=== PATIENT | male | born 1945 | race Two or more races ===

== ENCOUNTER 2020-06-29 20:10 | Inpatient (IN) | payer MEDICARE, OTHER ==
[~2020-06-29] VITALS: Ht 165.1 cm; Wt 75.3 kg
--- NOTE | 2020-06-29 20:25 | NUR ---
PT BIB[place] AND PD FROM [place]. PER REPORT "STAFF WERE CONCERNED BECAUSE HE NEVER LEFT." TREMORS NOTED. PT STATES "DOLOR" BUT UNABLE TO POINT WHERE THE PAIN IS. PT UNABLE TO PROVIDE HISTORY. PT AAOX2, RESPIRATIONS EVEN AND UNLABORED ON RA W/ NAD NOTED. PT CONNECTED TO THE POUNCING MACHINE OPERATOR AND POX.
--- NOTE | 2020-06-29 20:40 | NUR ---
BLOOD COLLECTED AND SENT TO LAB
[2020-06-29 20:49] LABS: BASOPHILS # (AUTO) 0.1 /CMM (0.0-0.2); BASOPHILS % (AUTO) 0.4 % (0.0-2.0); EOSINOPHILS % (AUTO) 0.1 % (0.0-6.0); HEMATOCRIT 45 % (39-51); HEMOGLOBIN 15.1 g/dL (13.5-17.5); LYMPHOCYTES # (AUTO) 1.3 /CMM (0.8-4.8); LYMPHOCYTES % (AUTO) 8.9 % (20.0-44.0); MEAN CORPUSCULAR HGB CONC 33 g/dl (31.0-36.0); MEAN CORPUSCULAR VOLUME 97 fL (80-96); MONOCYTES # (AUTO) 1.3 /CMM (0.1-1.30); MONOCYTES % (AUTO) 8.9 % (2.0-12.0); NEUTROPHILS # (AUTO) 11.7 /CMM (1.8-8.9); NEUTROPHILS % (AUTO) 81.7 % (43.0-81.0); PLATELET COUNT (AUTO) 170 /CMM (150-450); RED BLOOD CELL COUNT(AUTO) 4.69 MIL/uL (4.5-6.0); WHITE BLOOD COUNT (AUTO) 14.3 K/uL (4.3-11.0)
[2020-06-29 20:58] LABS: CALCIUM, SERUM 8.9 mg/dL (8.5-10.1); CREATININE 0.9 mg/dL (0.6-1.3); POTASSIUM 3.3 mmol/L (3.5-5.1)
--- NOTE | 2020-06-29 20:59 | NUR ---
PT TAKEN TO RADIOLOGY FOR CT
[2020-06-29 21:03] LABS: SERUM AMMONIA 17 umol/L (11-32)
[2020-06-29 21:04] LABS: ALANINE AMINOTRANSFERASE 11 U/L (12-78); ALCOHOL, BLOOD < 3 mg/dL (0-0); ALKALINE PHOSPHATASE 106 U/L (46-116); ASPARTATE AMINOTRANSFERASE 41 U/L (15-37); BILIRUBIN,DIRECT 0.2 mg/dL (0.0-0.2); BILIRUBIN,TOTAL 0.9 mg/dL (0.2-1.0); TOTAL PROTEIN, SERUM 7.7 g/dL (6.4-8.2)
--- NOTE | 2020-06-29 21:04 | NUR ---
pt returned from radiology
[2020-06-29] MEDS ORDERED: ONDANSETRON HCL/PF 4 MG/2 ML VIAL ONE (21:26)
[2020-06-29] MEDS ORDERED: MORPHINE SULFATE INJ 4 MG/ML DISP.SYRIN ONE (21:26)
[2020-06-29] MEDS ORDERED: MORPHINE SULFATE INJ 2 MG/ML DISP.SYRIN IV ONE (21:30)
[2020-06-29] MEDS ORDERED: IV NS 0.9% 1,000 ML BAG IV ONE (21:30)
[2020-06-29] MEDS ORDERED: ONDANSETRON HCL/PF 4 MG/2 ML VIAL IVP ONE (21:30)
[2020-06-29] MEDS ORDERED: PIPERACILLIN /TAZOBACTAM 3.375 G in IV D5W 50 ML IV ONE (21:30)
[2020-06-29 21:40] LABS: THYROID STIMULATING HORMONE 1.069 uIU/mL (0.358-3.74)
--- NOTE | 2020-06-29 21:40 | NUR ---
CALLED [facility], PAGED LUIS ENRIQUE
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
--- NOTE | 2020-06-29 21:47 | NUR ---
RECRUITING ADMINISTRATOR AT BEDSIDE FOR BLOOD DRAW
[2020-06-29] MEDS ORDERED: PIPERACILLIN /TAZOBACTAM 3.375 G VIAL IV ONE (21:53)
--- NOTE | 2020-06-29 21:53 | NUR ---
COVID SWAB SENT TO LAB
--- NOTE | 2020-06-29 21:57 | NUR ---
DALY BATTERY CHARGER CONVEYOR LINE AT BEDSIDE FOR EVAL
--- NOTE | 2020-06-29 22:28 | NUR ---
LAB CALLED, COVID RESULTS ARE NEGATIVE.
[2020-06-29] MEDS ORDERED: MAGNESIUM HYDROXIDE 30 ML UDC PO PRN (22:30)
[2020-06-29] MEDS ORDERED: CIPROFLOXACIN IV RTU 400 MG in PREMIX 1 EA IV SCH (22:30)
[2020-06-29] MEDS ORDERED: POTASSIUM CHLORIDE 20 MEQ TAB.PRT.SR PO ONE (22:30)
[2020-06-29] MEDS ORDERED: ACETAMINOPHEN 325 MG TABLET PO PRN (22:30)
[2020-06-29] MEDS ORDERED: MAG HYDROX/AL HYDROX/SIMETH 30 ML UDC PO PRN (22:30)
[2020-06-29] MEDS ORDERED: ONDANSETRON HCL/PF 4 MG/2 ML VIAL IVP PRN (22:30)
--- NOTE | 2020-06-29 22:41 | NUR ---
pt assigned [id number].
--- NOTE | 2020-06-29 22:49 | NUR ---
REPORT GIVEN TO URBANO CASIANO FOR JOSHUA
--- NOTE | 2020-06-29 23:43 | NUR ---
PT TRANSFERRED TO ROOM IN STABLE CONDITION
[2020-06-29 23:45] VITALS: BP 135/83
--- NOTE | 2020-06-29 23:45 | NUR ---
MS/REINFORCEMENT MAKER NOTE Patient in brought in by marquita @ 0204 from ER. VS: BP135/83 P78 R18 T98.3 [id number]%. Weight: 166 lbs. Patient is A/O x1-2, on bedrest. Patient unable to give any meaningful history or information during admission. Liberian speaking only. Patient unable to tell me date/time or where he is. Breath sounds even, clear, unlabored on room air. No JVD. CRP <3seconds. No tracheal deviation. Abdomen rond, soft, non-distended. BS hypoactive all quadrants. Patient is incontinent. ER nurse mentioned prior to leaving the ER, patient was able to ambulate to the bathroom independently. Tremors noted. Skin warm, pink, dry, intact. Full ROM achieved in all extremities. Coding Advisor strength 2+. Unable to assess gait, patient did not ambulate in room. Bed in low position, wheels locked, side rails up x2, call light within reach. Patient oriented to room.
[2020-06-30] MEDS: ASPIRIN 325 MG TABLET PO SCH ×2 (00:18→09:59)
[2020-06-30] MEDS: ENOXAPARIN SODIUM 40 MG/0.4 ML DISP.SYRIN SQ SCH ×2 (00:20→21:34)
[2020-06-30] MEDS ORDERED: METRONIDAZOLE 500MG/ NS 100ML 100 ML IV ONE (00:53)
[2020-06-30] MEDS ORDERED: CIPROFLOXACIN IV RTU 200 ML IV ONE (01:14)
[2020-06-30 02:02] VITALS: BP 135/83
[2020-06-30] MEDS: IV 1/2NS 1000 ML 1,000 ML IV PRN (03:45)
--- NOTE | 2020-06-30 03:57 | NUR ---
CALLED [facility] [phone] FOR [place]IN[place] MISSING PERSONS REPORT CASE [id number]. STATION CLOSED AT THIS TIME.
[2020-06-30] MEDS: METRONIDAZOLE 500MG/ NS 100ML 500 MG in PREMIX 1 EA IV SCH ×3 (04:00→21:37)
--- NOTE | 2020-06-30 06:06 | NUR ---
MS/RN CLOSING NOTE Patient is A/O x1-2, on bedrest. Polish speaking only. Breath sounds even, clear, unlabored on room air. No JVD. CRP <3seconds. Abdomen round, soft, non-distended. Patient had diarrhea 2x in ER. Patient is continent. Void 2x. Urinal 300 ml. Tremors noted. Skin warm, pink, dry, intact. Bed in low position, wheels locked, side rails up x2, call light within reach. Patient oriented to room.
[2020-06-30 06:14] LABS: BASOPHILS % (AUTO) 0.5 % (0.0-2.0); EOSINOPHILS % (AUTO) 0.9 % (0.0-6.0); HEMATOCRIT 43 % (39-51); HEMOGLOBIN 14.5 g/dL (13.5-17.5); LYMPHOCYTES # (AUTO) 2.4 /CMM (0.8-4.8); LYMPHOCYTES % (AUTO) 24.2 % (20.0-44.0); MEAN CORPUSCULAR HGB CONC 34 g/dl (31.0-36.0); MEAN CORPUSCULAR VOLUME 96 fL (80-96); MONOCYTES # (AUTO) 1.1 /CMM (0.1-1.30); NEUTROPHILS # (AUTO) 6.2 /CMM (1.8-8.9); NEUTROPHILS % (AUTO) 63.4 % (43.0-81.0); PLATELET COUNT (AUTO) 158 /CMM (150-450); RED BLOOD CELL COUNT(AUTO) 4.53 MIL/uL (4.5-6.0); WHITE BLOOD COUNT (AUTO) 9.8 K/uL (4.3-11.0)
[2020-06-30] MEDS: PANTOPRAZOLE 40 MG TABLET.DR PO SCH (06:36)
[2020-06-30 06:40] LABS: ALBUMIN 3.5 g/dL (3.4-5.0); BILIRUBIN,TOTAL 1.1 mg/dL (0.2-1.0); CALCIUM, SERUM 8.2 mg/dL (8.5-10.1); PHOSPHORUS 2.8 mg/dL (2.5-4.9); POTASSIUM 3.8 mmol/L (3.5-5.1); TOTAL PROTEIN, SERUM 6.8 g/dL (6.4-8.2)
[2020-06-30 06:45] LABS: THYROID STIMULATING HORMONE 1.103 uIU/mL (0.358-3.74)
[2020-06-30 08:00] VITALS: BP 141/81
--- NOTE | 2020-06-30 08:00 | NUR ---
Received patient from AM nurse. Patient in bed sleeping comfortably. Patient on room air and is breathing well, unlabored and equal. No SOB or acute respiratory distress noted. IV access noted on right forearm, 18 gauge, patent, no redness, or infiltration. Safety precaution in place, bed is in the lowest level, wheels are locked, alarm is on, side rails x2 are up, and call light is within reach. Will continue to monitor.
--- NOTE | 2020-06-30 09:00 | NUR ---
POLICE HERE THIS AM MISSING PERSONS REPORT FILED ON PT. POLICE STATE THEY SPOKE WITH FAMILY THIS AM.
[2020-06-30] MEDS ORDERED: TAMS-12 PO (10:15)
[2020-06-30] MEDS ORDERED: DONE10TA44 PO (10:15)
[2020-06-30] MEDS ORDERED: DUTA0.5C16 PO (10:15)
[2020-06-30] MEDS ORDERED: CARB1TAB39 PO (10:15)
[2020-06-30] MEDS ORDERED: ATEN50TA PO (10:15)
[2020-06-30] MEDS: HYDROCODONE/APAP 5/325MG TABLET PO PRN ×2 (12:14→18:35)
--- NOTE | 2020-06-30 12:15 | NUR ---
MED WITH VALDOSTA FOR SOLO. LEG PAIN.SPEAKS LITTLE BANGLADESHI.Dilan KRAMER FUNERAL GREETER INFORMED OF LEG PAIN.DTR.CALLING IN TO CHECK ON PT.
[2020-06-30] MEDS: CIPROFLOXACIN IV RTU 400 MG in PREMIX 1 EA IV SCH (12:19)
--- NOTE | 2020-06-30 12:20 | NUR ---
informed pt. asking for more food than cl. liquids.
--- NOTE | 2020-06-30 12:35 | NUR ---
Tatiana KRAMER MASTER COASTAL WATERS AWARE PT. WITH SHAKES,AND HAS HX OF PARKINSONS.
[2020-06-30 16:00] VITALS: BP 115/80
--- NOTE | 2020-06-30 17:45 | NUR ---
sleeping all afternoon.
--- NOTE | 2020-06-30 18:35 | NUR ---
medicated for fabián. leg pain with norco.
[2020-06-30 20:00] VITALS: BP 143/83
[2020-07-01] MEDS: CIPROFLOXACIN IV RTU 400 MG in PREMIX 1 EA IV SCH ×3 (00:34→23:33)
[2020-07-01] MEDS: IV 1/2NS 1000 ML 1,000 ML IV PRN (05:08)
[2020-07-01] MEDS: METRONIDAZOLE 500MG/ NS 100ML 500 MG in PREMIX 1 EA IV SCH ×3 (05:09→21:31)
--- NOTE | 2020-07-01 05:45 | NUR ---
Patient complains of bilateral lower extremity pain. Patient rates 7 on a 0-10 numerical scale. Noted BLE edema and weakness. Made Epic aware. MD ordered bilateral lower extremity venous duplex. Read order back and carried out.
[2020-07-01 06:33] LABS: BASOPHILS % (AUTO) 0.5 % (0.0-2.0); EOSINOPHILS % (AUTO) 4.1 % (0.0-6.0); HEMATOCRIT 44 % (39-51); HEMOGLOBIN 14.8 g/dL (13.5-17.5); LYMPHOCYTES # (AUTO) 2.1 /CMM (0.8-4.8); LYMPHOCYTES % (AUTO) 29.4 % (20.0-44.0); MEAN CORPUSCULAR HGB CONC 34 g/dl (31.0-36.0); MEAN CORPUSCULAR VOLUME 96 fL (80-96); MONOCYTES # (AUTO) 0.8 /CMM (0.1-1.30); MONOCYTES % (AUTO) 10.5 % (2.0-12.0); NEUTROPHILS % (AUTO) 55.5 % (43.0-81.0); PLATELET COUNT (AUTO) 164 /CMM (150-450); RED BLOOD CELL COUNT(AUTO) 4.61 MIL/uL (4.5-6.0); WHITE BLOOD COUNT (AUTO) 7.2 K/uL (4.3-11.0)
[2020-07-01 07:10] LABS: CALCIUM, SERUM 8.5 mg/dL (8.5-10.1); CREATININE 0.8 mg/dL (0.6-1.3); MAGNESIUM 1.9 mg/dL (1.8-2.4); PHOSPHORUS 3.4 mg/dL (2.5-4.9); POTASSIUM 3.5 mmol/L (3.5-5.1)
--- NOTE | 2020-07-01 07:35 | NUR ---
RN MS OPENING NOTES RECEIVED PATIENT RESTING IN BED A/O X1-2, PATIENT ON RA; WITH EVEN AND UNLABORED BREATHING, NO ACUTE RESPIRATORY DISTRESS NOTED. IV TO RT FA #18 G PATENT AND INTACT RUNNING WITH 0.45& NS @50 ML/HR. NO REDNESS OR SWELLING NOTED, NO SIGNS OF INFILTRATION. SKIN INTACT, BED IS AT LOWEST POSITION AND LOCKED WITH SIDE RAILS UPX2 AND CALL LIGHT WITHIN REACH. WILL CONTINUE TO MONITOR PATIENT THROUGH OUT SHIFT.
[2020-07-01] MEDS: PANTOPRAZOLE 40 MG TABLET.DR PO SCH (07:38)
[2020-07-01 08:00] VITALS: BP 126/78
[2020-07-01] MEDS: ASPIRIN 325 MG TABLET PO SCH (08:44)
[2020-07-01 16:00] VITALS: BP 180/66
--- NOTE | 2020-07-01 18:12 | NUR ---
RN MS CLOSING NOTES PATIENT RESTING COMFORTABLY IN BED A/O X1-2, PATIENT IS ON RA; WITH EVEN AND UNLABORED BREATHING, NO ACUTE RESPIRATORY DISTRESS NOTED. IV TO RT FA #18 G PATENT AND INTACT RUNNING WITH 0.45& NS @50 ML/HR. NO REDNESS OR SWELLING NOTED. SKIN INTACT, BED IS AT LOWEST POSITION AND LOCKED WITH SIDE RAILS UPX2 AND CALL LIGHT WITHIN REACH. WILL ENDORSE TO ONCOMING SHIFT
--- NOTE | 2020-07-01 19:47 | NUR ---
Received patient from AM nurse. Patient in bed, awake, alert, and oriented x2. Patient on room air and is breathing well, unlabored and equal. No SOB or acute respiratory distress noted. IV access noted on right forearm, 18 gauge, patent, no redness, or infiltration. Safety precaution in place, bed is in the lowest level, wheels are locked, alarm is on, side rails x2 are up, and call light is within reach. Will continue to monitor.
[2020-07-01 20:00] VITALS: BP 145/90
[2020-07-01 20:42] VITALS: BP 145/90
[2020-07-01] MEDS: ENOXAPARIN SODIUM 40 MG/0.4 ML DISP.SYRIN SQ SCH (21:30)
--- NOTE | 2020-07-01 22:00 | NUR ---
Gave report to Kimber for continuity of care.
--- NOTE | 2020-07-01 22:12 | NUR ---
RN NOTES RECEIVED PATIENT FROM URBANO DURON. RESTING IN BED A/O X 1-2. STABLE ON RA WITH BREATHING EVEN AND UNLBORED, NO SOB NOTED. NO SIGNS OF ACUTE DISTRESS. SAFETY PRECAUTIONS IN PLACE . WILL CONTINUE TO MONITOR THROUGHOUT THE NIGHT,
[2020-07-02] MEDS: METRONIDAZOLE 500MG/ NS 100ML 500 MG in PREMIX 1 EA IV SCH (04:30)
[2020-07-02 07:05] LABS: BASOPHILS % (AUTO) 0.7 % (0.0-2.0); EOSINOPHILS % (AUTO) 2.6 % (0.0-6.0); HEMATOCRIT 45 % (39-51); HEMOGLOBIN 15.3 g/dL (13.5-17.5); LYMPHOCYTES # (AUTO) 1.7 /CMM (0.8-4.8); LYMPHOCYTES % (AUTO) 23.5 % (20.0-44.0); MEAN CORPUSCULAR HGB CONC 34 g/dl (31.0-36.0); MEAN CORPUSCULAR VOLUME 95 fL (80-96); MONOCYTES # (AUTO) 0.8 /CMM (0.1-1.30); MONOCYTES % (AUTO) 11.4 % (2.0-12.0); NEUTROPHILS # (AUTO) 4.4 /CMM (1.8-8.9); NEUTROPHILS % (AUTO) 61.8 % (43.0-81.0); PLATELET COUNT (AUTO) 157 /CMM (150-450); RED BLOOD CELL COUNT(AUTO) 4.76 MIL/uL (4.5-6.0)
[2020-07-02 07:09] LABS: CALCIUM, SERUM 8.3 mg/dL (8.5-10.1); CREATININE 0.9 mg/dL (0.6-1.3); POTASSIUM 3.6 mmol/L (3.5-5.1)
--- NOTE | 2020-07-02 07:55 | NUR ---
MS/RN OPENING NOTE RECEIVED PATIENT FROM CERTIFIED RECREATIONAL THERAPIST. PATIENT REMAINS IN STABLE CONDITION. A/O X1-2 SAMI SPEAKING. VS WITHIN NORMAL RANGE, NO ACUTE DISTRESS NOTED. PATIENT IS ON ROOM AIR TOLERATING WELL. RIGHT FA #18 INTACT AND PATENT, INFUSING 1/2 NS AT 50ML/HR. SAFETY MEASURES IN PLACE, BED LOCKED AND IN LOWEST POSITION, CALL LIGHT WITH IN REACH, BED ALARM ACTIVATED. WILL CONTINUE TO MONITOR AND ENSURE SAFETY.
[2020-07-02 08:00] VITALS: BP 148/69
[2020-07-02] MEDS: PANTOPRAZOLE 40 MG TABLET.DR PO SCH (08:23)
[2020-07-02] MEDS: ASPIRIN 325 MG TABLET PO SCH (08:23)
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
--- NOTE | 2020-07-02 12:37 | NUR ---
SANDRA contacted patient daughter Brenda . Daughter Brenda informed this SW that the patient has had previous episodes of forgetfulness. Brenda informed this SW that the patient was home alone on 06/29. Brenda informed this SW that the patient has a history of Parkinsons disease and Brenda reports that the patient has not been diagnosed with Dementia but Brenda suspects that the patient has dementia. Brenda stated that the patient has a private caregiver for 6 hours a day and the patients family visit his home often. Brenda reported that a recent episode of forgetfulness included the patient confusing Brenda with patients granddaughter. Brenda asked this SW about patients discharge. SANDRA informed Brenda that there is no current date for discharge as patients physician has not made any recommendations yet. Brenda asked this SW if the patient may need 24-hour care. SW informed Brenda that patients physician would make his recommendation and Brenda can explore prison facility, acute rehab, home health, and in-home support services with Case Management team. Brenda informed this SW that she would wait for patient physician recommendation regarding discharge status. Plan: SANDRA to inform Case Management team to follow-up with Brenda pending discharge recommendation.
[2020-07-02] MEDS: METRONIDAZOLE 500 MG TABLET PO SCH ×2 (12:39→20:33)
[2020-07-02] MEDS: CIPROFLOXACIN HCL 500 MG TABLET PO SCH ×2 (12:43→20:33)
[2020-07-02] MEDS: IV 1/2NS 1000 ML 1,000 ML IV PRN (12:50)
[2020-07-02 16:00] VITALS: BP 147/84
[2020-07-02] MEDS: CARBIDOPA/LEVODOPA 25/100 MG 1 UDTAB PO SCH (16:44)
--- NOTE | 2020-07-02 19:30 | NUR ---
Opening Notes: Report received from am nurse. Patient is ambulatory with assistance. [place] speaking. No acute distress noted. Denies any pain, no SOB noted. VS WNL. Patient assisted with ADLs and transfers. Patient able to reposition and turn herself. Fall precautions observed. Call light within reach.
[2020-07-02] MEDS: ENOXAPARIN SODIUM 40 MG/0.4 ML DISP.SYRIN SQ SCH (23:07)
[2020-07-03] MEDS: METRONIDAZOLE 500 MG TABLET PO SCH ×2 (05:30→12:26)
--- NOTE | 2020-07-03 06:49 | NUR ---
Closing Notes: Patient awake. No acute distress noted. Denies any pain, no SOB noted. VS WNL. Patient assisted with ADLs and transfers. Kept clean and dry. Good pericare provided. Linens changed. Patient able to reposition and turn himself. Fall precautions observed. Call light within reach.
[2020-07-03 07:23] LABS: BASOPHILS % (AUTO) 0.6 % (0.0-2.0); EOSINOPHILS % (AUTO) 2.1 % (0.0-6.0); HEMATOCRIT 48 % (39-51); HEMOGLOBIN 16.1 g/dL (13.5-17.5); LYMPHOCYTES # (AUTO) 1.7 /CMM (0.8-4.8); LYMPHOCYTES % (AUTO) 20.5 % (20.0-44.0); MEAN CORPUSCULAR HGB CONC 34 g/dl (31.0-36.0); MEAN CORPUSCULAR VOLUME 96 fL (80-96); MONOCYTES # (AUTO) 1.1 /CMM (0.1-1.30); MONOCYTES % (AUTO) 12.6 % (2.0-12.0); NEUTROPHILS # (AUTO) 5.4 /CMM (1.8-8.9); NEUTROPHILS % (AUTO) 64.2 % (43.0-81.0); PLATELET COUNT (AUTO) 160 /CMM (150-450); RED BLOOD CELL COUNT(AUTO) 5.02 MIL/uL (4.5-6.0); WHITE BLOOD COUNT (AUTO) 8.4 K/uL (4.3-11.0)
--- NOTE | 2020-07-03 07:30 | NUR ---
MS/RN OPENING NOTE Received patient resting in bed, A&O x 1-2, Maltese speaking. Denies any pain/discomfort at this time. Breathing even and non-labored on RA. No respiratory or cardiac distress noted. IV access noted on R FA #18 gauge, patent and intact, and running 1/2 NS @ 50ml/hr. Sensation from all peripheral extremities intact. Bed locked to its lowest position, side rails x 2 up, call light in hand. Will continue with current medical management.
[2020-07-03 08:00] LABS: CALCIUM, SERUM 8.5 mg/dL (8.5-10.1); POTASSIUM 3.2 mmol/L (3.5-5.1)
[2020-07-03] MEDS: CARBIDOPA/LEVODOPA 25/100 MG 1 UDTAB PO SCH ×2 (08:16→12:26)
[2020-07-03] MEDS: ASPIRIN 325 MG TABLET PO SCH (08:16)
[2020-07-03] MEDS: CIPROFLOXACIN HCL 500 MG TABLET PO SCH (08:16)
[2020-07-03] MEDS: PANTOPRAZOLE 40 MG TABLET.DR PO SCH (08:16)
[2020-07-03] MEDS ORDERED: LISINOPRIL (10MG) 10 MG TABLET PO SCH (09:00)
[2020-07-03 09:04] VITALS: BP 151/82
[2020-07-03] MEDS ORDERED: POTASSIUM CHLORIDE 20 MEQ TAB.PRT.SR PO ONE (10:30)
[2020-07-03] MEDS ORDERED: CARBIDOPA/LEVA CR 25/100MG 1 TAB.SA PO SCH (13:00)
--- NOTE | 2020-07-03 13:00 | NUR ---
MS/RN NOTE Advanced diet to soft diet, patient tolerating it well. Will continue to monitor.
--- NOTE | 2020-07-03 14:00 | NUR ---
MS/CARPET TILE LAYER NOTES Patient picked up at 1400 by billing specialist. All needs are met and attended to. Patient remained stable throughout shift. A&O X 1-2, VSS, afebrile, no SOB noted. Denies any pain/discomfort at this time. Breathing even and non-labored on RA, no respiratory distress noted. No cardiac distress noted. IV access on R FA #18 removed with catheter intact, placed clean dry dressing on site. No s/s of infection, bleeding, or infiltration noted on site. Skin assessment done, no new skin impairments noted. Sensation from all peripheral extremities intact. Educated patient and [facility] regarding [facility] instructions, answered all their questions to their satisfaction. Both have verbalized understanding. Patient left facility safely with all belongings and hospital documents in hand.
[2020-07-03] MEDS ORDERED: TAMSULOSIN 0.4 MG CAP.SR.24H PO SCH (22:00)
[2020-07-04] MEDS ORDERED: ATENOLOL 50 MG TABLET PO SCH (09:00)
[2020-07-04] MEDS ORDERED: DONEPEZIL 5 MG TABLET PO SCH (09:00)
[2020-07-04] MEDS ORDERED: DUTASTERIDE (0.5 MG) 0.5 MG CAPSULE PO SCH (09:00)
== END 2020-07-03 14:15 | DRG 391 ==
LOC: ER 20:13 → MED 22:51
PROVIDERS: ADMIT Nurse Practitioner Acute Care; ATTEND Internal Medicine
DX: A09 Infectious gastroenteritis and colitis, unspecified (principal); G93.41 Metabolic encephalopathy; I21.A1 Myocardial infarction type 2; D68.69 Other thrombophilia; G20 Parkinson's disease; F02.80 Dementia in other diseases classified elsewhere, unspecified severity, without behavioral disturbance, psychotic disturbance, mood disturbance, and anxiety; E87.6 Hypokalemia; I10 Essential (primary) hypertension; D72.829 Elevated white blood cell count, unspecified; R40.2362 Coma scale, best motor response, obeys commands, at arrival to emergency department; R40.2142 Coma scale, eyes open, spontaneous, at arrival to emergency department; R40.2252 Coma scale, best verbal response, oriented, at arrival to emergency department
CPT/HCPCS: 36415; 70450-TC; 71045-TC; 80048-TC; 80053-TC; 80061-TC; 80076-TC; 82140-TC; 83735-TC; 84100-TC; 84443-TC; 84484-TC; 85025-TC; 85730-TC; 87040-TC; 87081-TC; 93307-TC; 93970-TC; 97112-TC; 97116-TC; 97530-TC; A4216; C9803; G0378; G0480; J0744; J1650; J2270; J2405; J2543; J3490; J7030; J7060

== ENCOUNTER 2024-01-28 20:19 | Inpatient (IN) | payer MEDICARE, OTHER ==
[~2024-01-28] VITALS: Ht 162.6 cm; Wt 57.2 kg
[~2024-01-28 20:19] MED LIST: ATEN50TA PO; CARB1TAB39 PO; DONE10TA44 PO; DUTA0.5C37 PO; TAMS-12 PO
[2024-01-28] MEDS ORDERED: CEFEPIME 1 GM VIAL ONE (20:40)
[2024-01-28 20:49] LABS: BASOPHILS % (AUTO) 0.4 % (0.0-2.0); EOSINOPHILS # (AUTO) 0.1 K/uL (0.0-0.7); EOSINOPHILS % (AUTO) 1.1 % (0.0-6.0); HEMATOCRIT 43 % (39-51); HEMOGLOBIN 14.5 g/dL (13.5-17.5); LYMPHOCYTES # (AUTO) 1.7 K/uL (0.8-4.8); LYMPHOCYTES % (AUTO) 19.7 % (20.0-44.0); MEAN CORPUSCULAR HEMOGLOBIN 32 PG (26.0-33.0); MEAN CORPUSCULAR HGB CONC 34 g/dl (31.0-36.0); MEAN CORPUSCULAR VOLUME 95 fL (80-96); MONOCYTES % (AUTO) 11.6 % (2.0-12.0); NEUTROPHILS # (AUTO) 5.7 K/uL (1.8-8.9); NEUTROPHILS % (AUTO) 67.2 % (43.0-81.0); PLATELET COUNT (AUTO) 137 K/uL (150-450); RED BLOOD CELL COUNT(AUTO) 4.56 MIL/uL (4.5-6.0); RED CELL DISTRIBUTION WIDTH 13.8 % (11.5-15.0); WHITE BLOOD COUNT (AUTO) 8.4 K/uL (4.3-11.0)
[2024-01-28] MEDS: CEFEPIME 1 GM in IV D5W 50 ML IV ONE (20:54)
[2024-01-28] MEDS: IV NS 0.9% 1,000 ML BAG IV ONE (20:54)
[2024-01-28 21:02] LABS: CALCIUM, SERUM 8.3 mg/dL (8.5-10.1); CARBON DIOXIDE 24 mmol/L (21-32); CHLORIDE 108 mmol/L (98-107); CREATININE 0.8 mg/dL (0.6-1.3); GLUCOSE 87 mg/dL (74-106); POTASSIUM 3.2 mmol/L (3.5-5.1); SODIUM SERUM 139 mmol/L (136-145); UREA NITROGEN, BLOOD 23 mg/dL (7-18)
[2024-01-28 21:05] LABS: INR 1.18 (0.91-1.10); PARTIAL THROMBOPLASTIN TIME 29.1 SEC (24.3-34.3); PROTHROMBIN TIME 12.1 SECS (9.2-11.1)
[2024-01-28 21:10] LABS: LACTIC ACID 0.7 mmol/L (0.4-2.0)
[2024-01-28 21:16] LABS: ALANINE AMINOTRANSFERASE 25 U/L (12-78); ALBUMIN 3.5 g/dL (3.4-5.0); ALKALINE PHOSPHATASE 83 U/L (46-116); ASPARTATE AMINOTRANSFERASE 15 U/L (15-37); BILIRUBIN,DIRECT 0.2 mg/dL (0.0-0.2); BILIRUBIN,TOTAL 0.9 mg/dL (0.2-1.0)
[2024-01-28 22:30] VITALS: BP 134/73; TEMP 98.4; O2SAT 98
[2024-01-28] MEDS ORDERED: ONDANSETRON HCL/PF 4 MG/2 ML VIAL IVP PRN (23:00)
[2024-01-28] MEDS ORDERED: MAG HYDROX/AL HYDROX/SIMETH 30 ML UDC PO PRN (23:00)
[2024-01-28] MEDS ORDERED: Z GUARD REMEDY 4 OZ OINT TP PRN (23:00)
[2024-01-28] MEDS ORDERED: MAGNESIUM HYDROXIDE 30 ML UDC PO PRN (23:00)
[2024-01-28] MEDS ORDERED: ZOLPIDEM TARTRATE 5 MG TABLET PO PRN (23:00)
[2024-01-28] MEDS ORDERED: ACETAMINOPHEN 325 MG TABLET PO PRN (23:00)
[2024-01-29] MEDS ORDERED: IV PREMIX D5 1/2NS + KCL 1,000 ML IV ONE (00:31)
[2024-01-29 00:36] VITALS: BP 134/73; TEMP 98.6; O2SAT 98
[2024-01-29] MEDS: Potassium Chloride 20 MEQ in IV D5/0.45 NACL 1,000 ML IV PRN (00:40)
[2024-01-29] MEDS: METOPROLOL TARTRATE INJ 5 MG/5 ML AMPUL IVP ONE (00:45)
[2024-01-29 04:38] VITALS: BP 115/77; TEMP 98.4; O2SAT 98
[2024-01-29 07:00] VITALS: BP 113/69; TEMP 97.3; O2SAT 98
[2024-01-29 07:32] LABS: BASOPHILS % (AUTO) 0.2 % (0.0-2.0); EOSINOPHILS # (AUTO) 0.2 K/uL (0.0-0.7); HEMATOCRIT 38 % (39-51); HEMOGLOBIN 12.7 g/dL (13.5-17.5); LYMPHOCYTES # (AUTO) 1.9 K/uL (0.8-4.8); LYMPHOCYTES % (AUTO) 26.7 % (20.0-44.0); MEAN CORPUSCULAR HEMOGLOBIN 33 PG (26.0-33.0); MEAN CORPUSCULAR HGB CONC 34 g/dl (31.0-36.0); MEAN CORPUSCULAR VOLUME 96 fL (80-96); MONOCYTES % (AUTO) 14.1 % (2.0-12.0); NEUTROPHILS # (AUTO) 3.9 K/uL (1.8-8.9); PLATELET COUNT (AUTO) 123 K/uL (150-450); RED BLOOD CELL COUNT(AUTO) 3.92 MIL/uL (4.5-6.0); RED CELL DISTRIBUTION WIDTH 13.7 % (11.5-15.0); WHITE BLOOD COUNT (AUTO) 6.9 K/uL (4.3-11.0)
[2024-01-29 08:29] LABS: ALBUMIN 2.7 g/dL (3.4-5.0); BILIRUBIN,DIRECT 0.2 mg/dL (0.0-0.2); BILIRUBIN,TOTAL 0.7 mg/dL (0.2-1.0); CALCIUM, SERUM 7.7 mg/dL (8.5-10.1); CREATININE 0.8 mg/dL (0.6-1.3); MAGNESIUM 1.8 mg/dL (1.8-2.4); PHOSPHORUS 2.7 mg/dL (2.5-4.9); POTASSIUM 3.4 mmol/L (3.5-5.1); TOTAL PROTEIN, SERUM 5.8 g/dL (6.4-8.2)
[2024-01-29 08:34] LABS: THYROID STIMULATING HORMONE 0.921 uIU/mL (0.358-3.74)
[2024-01-29] MEDS: PANTOPRAZOLE 40 MG VIAL IV SCH (08:40)
[2024-01-29] MEDS: ENOXAPARIN SODIUM 40 MG/0.4 ML DISP.SYRIN SQ SCH (08:41)
[2024-01-29] MEDS: POTASSIUM CL. PREMIX PERIPHER. 50 ML IV SCH (09:23)
[2024-01-29] MEDS: IV D5/0.45 NACL W/20 MEQ KCL 1L IV SCH (13:50)
[2024-01-29 16:00] VITALS: BP 118/71; TEMP 98.4; O2SAT 95
[2024-01-29] MEDS: CEFTRIAXONE 1 G in IV D5W 50 ML IV SCH (18:46)
[2024-01-29] MEDS: VANCOMYCIN HCL 1.25 GM in IV D5W 250 ML IV ONE (19:48)
[2024-01-29 20:00] VITALS: BP 131/78; TEMP 95.5; TEMP 97.5; O2SAT 97
[2024-01-30] MEDS: VANCOMYCIN 750 MG in IV D5W 250 ML IV SCH (06:16)
[2024-01-30 06:51] LABS: CALCIUM, SERUM 7.6 mg/dL (8.5-10.1); CREATININE 0.7 mg/dL (0.6-1.3); POTASSIUM 3.3 mmol/L (3.5-5.1)
[2024-01-30 08:00] VITALS: BP 112/73; TEMP 98.2; O2SAT 98
[2024-01-30] MEDS ORDERED: POTASSIUM CHLORIDE 20 MEQ POWDER PACKET PO ONE (09:00)
[2024-01-30] MEDS ORDERED: PANTOPRAZOLE 40 MG TABLET.DR PO SCH (09:00)
[2024-01-30] MEDS: POTASSIUM CL. PREMIX PERIPHER. 50 ML IV SCH (10:58)
[2024-01-30] MEDS ORDERED: HYDR-3976 PO (12:12)
[2024-01-30] MEDS ORDERED: GEMTESA PO (12:12)
[2024-01-30] MEDS ORDERED: VITA1TAB56 PO (12:12)
[2024-01-30] MEDS ORDERED: BENA10TA74 PO (12:12)
[2024-01-30] MEDS ORDERED: CARB1TAB21 PO (12:12)
[2024-01-30] MEDS ORDERED: QUET25TA PO (12:12)
[2024-01-30] MEDS ORDERED: PRAM0.375 PO (12:12)
[2024-01-30] MEDS ORDERED: PANT40TA49 PO (12:12)
[2024-01-30 20:00] VITALS: BP 114/70; TEMP 97.7; TEMP 97.9; O2SAT 96
[2024-01-31 05:22] LABS: CALCIUM, SERUM 8.3 mg/dL (8.5-10.1); CREATININE 0.7 mg/dL (0.6-1.3); POTASSIUM 3.5 mmol/L (3.5-5.1)
[2024-01-31 07:00] VITALS: BP 118/58; TEMP 97.7; O2SAT 100
[2024-01-31] MEDS ORDERED: HYDROCODONE/APAP 5/325MG TABLET PO PRN (07:30)
[2024-01-31] MEDS: CARBIDOPA/LEVODOPA 25/100 MG 1 UDTAB PO SCH (09:00)
[2024-01-31] MEDS: BENAZEPRIL HCL 10 MG TABLET PO SCH (09:00)
[2024-01-31] MEDS: VITAMIN B COMP W-C 1 TAB TABLET PO SCH (09:00)
[2024-01-31] MEDS ORDERED: DONEPEZIL 5 MG TABLET PO SCH (09:00)
[2024-01-31] MEDS ORDERED: QUETIAPINE FUMARATE 25 MG TABLET PO SCH (09:00)
[2024-01-31] MEDS ORDERED: PANTOPRAZOLE 40 MG TABLET.DR PO SCH (09:00)
[2024-01-31] MEDS: PANTOPRAZOLE 40 MG TABLET.DR PO SCH (09:00)
[2024-01-31] MEDS ORDERED: Medication Not On Formulary EA ([Gemtesa] 75 MG) PO SCH (09:00)
[2024-01-31] MEDS: PRAMIPEXOLE DI-HCL 0.25 MG TABLET PO SCH (09:00)
[2024-01-31 16:00] VITALS: BP 95/61; TEMP 97.9; O2SAT 100
[2024-01-31] MEDS: CEFTRIAXONE 1 G in IV D5W 50 ML IV SCH (16:08)
[2024-01-31 20:00] VITALS: BP 141/92; TEMP 98.2; O2SAT 98
[2024-02-01 06:58] LABS: CALCIUM, SERUM 8.5 mg/dL (8.5-10.1); CHLORIDE 106 mmol/L (98-107); CREATININE 0.6 mg/dL (0.6-1.3); GLUCOSE 122 mg/dL (74-106); POTASSIUM 3.4 mmol/L (3.5-5.1); SODIUM SERUM 138 mmol/L (136-145); UREA NITROGEN, BLOOD 4 mg/dL (7-18)
[2024-02-01 07:20] LABS: CARBON DIOXIDE 23 mmol/L (21-32)
[2024-02-01 08:10] VITALS: BP 126/76; TEMP 98.1; O2SAT 99
[2024-02-01] MEDS: POTASSIUM CHLORIDE 20 MEQ TAB.PRT.SR PO ONE (08:13)
[2024-02-01 16:49] VITALS: BP 116/61; TEMP 97.9; O2SAT 98
[2024-02-01 20:00] VITALS: BP 149/76; TEMP 97.9; O2SAT 99
[2024-02-02 07:03] LABS: CALCIUM, SERUM 8.9 mg/dL (8.5-10.1); CREATININE 0.6 mg/dL (0.6-1.3); POTASSIUM 3.8 mmol/L (3.5-5.1)
[2024-02-02 08:24] VITALS: BP 120/66; TEMP 98.4; O2SAT 95
[2024-02-02] MEDS: JEVITY 1.2 CAL 1,000 ML BOTTLE GT PRN (11:25)
[2024-02-02 14:44] LABS: APPEARANCE,URINE CLEAR (CLEAR); BILIRUBIN,URINE NEGATIVE (NEGATIVE); BLOOD, URINE TRACE-INTA Ery/uL (NEGATIVE); COLOR,URINE YELLOW (YELLOW); KETONES,URINE NEGATIVE (NEGATIVE); LEUKOCYTE ESTERASE ,URINE 1+ (NEGATIVE); NITRITE, URINE NEGATIVE (NEGATIVE); PROTEIN,URINE NEGATIVE (NEGATIVE); UGLUCOSE NEGATIVE (NEGATIVE); UROBILINOGEN,URINE 0.2 EU/dL (0.2)
[2024-02-02 15:48] LABS: ADD URINE CULTURE YES; RBC,URINE 0-2 /HPF (0-2); SQUAMOUS EPITHELIAL CELL,UR Few /HPF (None Seen)
[2024-02-02 15:49] LABS: BACTERIA,URINE 2+ /HPF (None Seen); YEAST,URINE Moderate /HPF (None Seen)
[2024-02-02 16:07] VITALS: BP 116/93; TEMP 98.8; O2SAT 94
[2024-02-02 20:00] VITALS: BP 101/68; TEMP 98.4; O2SAT 100; O2SAT 98
[2024-02-03 07:11] LABS: CALCIUM, SERUM 7.9 mg/dL (8.5-10.1); CREATININE 0.6 mg/dL (0.6-1.3); POTASSIUM 3.8 mmol/L (3.5-5.1)
[2024-02-03 08:00] VITALS: BP 116/74; TEMP 99.3; O2SAT 99
[2024-02-03 09:39] VITALS: BP 116/74
[2024-02-03] MEDS ORDERED: PANT40TA49 PO (13:15)
[2024-02-03] MEDS ORDERED: FLUC100T8 PO (13:15)
[2024-02-03] MEDS ORDERED: VANC750F IV (13:15)
[2024-02-03] MEDS ORDERED: ENOX40DI SQ (13:15)
[2024-02-03] MEDS ORDERED: LACT-209 GT (13:15)
[2024-02-03] MEDS ORDERED: CEFT1FRO2 IV (13:15)
[2024-02-04] MEDS ORDERED: FLUCONAZOLE (100 MG) 100 MG TABLET PO SCH (09:00)
== END 2024-02-03 16:30 | DRG 640 ==
LOC: ER 20:21 → TELE 21:54 → MED 01-29 09:00
PROVIDERS: ADMIT Nurse Practitioner Family; ATTEND Nurse Practitioner Acute Care
PROC: 0DH63UZ Insertion of Feeding Device into Stomach, Percutaneous Approach (ICD-10-PCS; principal; 2024-02-01)
DX: R62.7 Adult failure to thrive (principal); G93.41 Metabolic encephalopathy; E44.0 Moderate protein-calorie malnutrition; B37.49 Other urogenital candidiasis; R78.81 Bacteremia; G20.A1 Parkinson's disease without dyskinesia, without mention of fluctuations; E86.0 Dehydration; E87.6 Hypokalemia; F02.80 Dementia in other diseases classified elsewhere, unspecified severity, without behavioral disturbance, psychotic disturbance, mood disturbance, and anxiety; D64.9 Anemia, unspecified; E88.09 Other disorders of plasma-protein metabolism, not elsewhere classified; I10 Essential (primary) hypertension; K29.70 Gastritis, unspecified, without bleeding; R13.10 Dysphagia, unspecified; Z87.891 Personal history of nicotine dependence; R53.1 Weakness; Z68.21 Body mass index [BMI] 21.0-21.9, adult; N40.1 Benign prostatic hyperplasia with lower urinary tract symptoms
CPT/HCPCS: 36415; 43246; 71045-TC; 80048-TC; 80076-TC; 80202-TC; 81001; 82962-TC; 83605-TC; 83735-TC; 84100-TC; 84443-TC; 84484-TC; 85025-TC; 85730-TC; 87040-TC; 87086-TC; 87186-TC; 92526; 92611-TC; 93307-TC; A4223; C9113; G0378; J0692; J0696; J1650; J2704; J3371; J3480; J3490; J7040; J7050; J7060